=== PATIENT | female | born 1970 | race Caucasian/White ===

== ENCOUNTER 2025-05-12 08:16 | Outpatient (RCR) | payer OTHER, MEDICARE, SELFPAY ==
[2025-05-12 08:30] VITALS: BP 144/81
[2025-05-12] MEDS: CORTROSYN 1 MG IV (09:06)
[2025-05-12 09:56] LABS: ACTH Stim Cortisol 0 Min 7.6 ug/dl
[2025-05-12 10:59] LABS: ACTH Stim Cortisol 30 Min 23.3 ug/dl
[2025-05-12 11:26] LABS: ACTH Stim Cortisol 60 Min 27.0 ug/dl
== END 2025-05-15 09:14 | disposition home or self-care (01) ==
LOC: OID 08:16
PROVIDERS: ATTENDING PHYSICIAN Internal Medicine Endocrinology, Diabetes & Metabolism; FAMILY PHYSICIAN Family Medicine
CPT/HCPCS: 36591; 82533; 96374